=== PATIENT | male | born 1955 | race Caucasian/White ===

== ENCOUNTER 2021-05-02 15:53 | Inpatient (IN) | payer MEDICARE, OTHER ==
[2021-05-02 16:20] LABS: #Basophils 0.1 thou/uL (0.0-0.2); #Eosinphils 0.3 thou/uL (0.0-0.7); #Lymphocytes 1.5 thou/uL (1.20-3.40); #Monocytes 0.9 thou/uL (0.11-0.59); #Neutrophils 6.3 thou/uL (1.40-6.50); %Basophils 1.3 % (0.0-1.0); %Eosinophils 3.6 % (0.0-10.0); %Lymphocytes 16.7 % (21.0-51.0); %Monocytes 10.1 % (0.0-10.0); %Neutrophils 68.3 % (42.0-75.0); Hemoglobin 7.9 g/dL (14.0-18.0); Mean Corpuscular HGB CONC 34.1 g/dL (32.0-36.0); Mean Corpuscular Hemoglobin 34.3 pg (27.0-31.0); Platelet Count 134 thou/uL (130-400); RBC Distribution Width 13.7 % (11.5-14.5); Red Blood Cell (RBC) Count 2.31 mill/uL (4.70-6.10); White Blood Cell (WBC) Count 9.2 thou/uL (4.8-10.8)
[2021-05-02 16:33] LABS: INR-International Normal Ratio 1.2; PTT 30.4 sec (22.9-36.1); Prothrombin Time 15.9 sec (12.0-14.7)
[2021-05-02 16:42] LABS: ALT (SGPT) 17 U/L (8-55); AST (SGOT) 15 U/L (5-34); Albumin 3.9 g/dL (3.4-4.8); Alkaline Phosphatase 67 U/L (40-110); Anion Gap 13 mmol/L (10-20); BUN (Urea Nitrogen) 31 mg/dL (8.4-25.7); Bilirubin, Total 0.6 mg/dL (0.2-1.2); Calc. Creatinine Clearance 0 mL/min (70-130); Calcium 8.3 mg/dL (7.8-10.44); Carbon Dioxide 25 mmol/L (23-31); Chloride 106 mmol/L (98-107); Globulin 2.6 g/dL (2.4-3.5); Glucose 121 mg/dL (80-115); Potassium 3.7 mmol/L (3.5-5.1); Protein, Total 6.5 g/dL (5.8-8.1); Sodium 140 mmol/L (136-145)
[2021-05-02] MEDS ORDERED: Pantoprazole 40 MG VIAL ONE (16:57)
[2021-05-02] MEDS ORDERED: Ondansetron PF 4 MG/2 ML Vial IVP PRN (17:21)
[2021-05-02] MEDS ORDERED: Ondansetron ODT 4 MG TAB PO PRN (17:21)
[2021-05-02] MEDS ORDERED: Acetaminophen 650 MG Suppository PR PRN (17:21)
[2021-05-02 20:05] LABS: SARS-CoV-2 NAA Rapid Test Not Detected (NotDetected)
[2021-05-02 21:00] VITALS: BMI 32.9
[2021-05-02] MEDS: Pantoprazole 40 MG VIAL IVP SCH (21:16)
[2021-05-03 05:08] LABS: Anion Gap 11 mmol/L (10-20); BUN (Urea Nitrogen) 26 mg/dL (8.4-25.7); Calc. Creatinine Clearance 92 mL/min (70-130); Calcium 8.2 mg/dL (7.8-10.44); Carbon Dioxide 26 mmol/L (23-31); Chloride 109 mmol/L (98-107); Glucose 106 mg/dL (80-115); Potassium 3.7 mmol/L (3.5-5.1); Sodium 142 mmol/L (136-145)
[2021-05-03 06:05] LABS: #Basophils 0.1 thou/uL (0.0-0.2); #Eosinphils 0.3 thou/uL (0.0-0.7); #Lymphocytes 1.4 thou/uL (1.20-3.40); #Monocytes 0.7 thou/uL (0.11-0.59); #Neutrophils 4.5 thou/uL (1.40-6.50); %Basophils 1.5 % (0.0-1.0); %Eosinophils 3.8 % (0.0-10.0); %Lymphocytes 19.7 % (21.0-51.0); %Monocytes 9.8 % (0.0-10.0); %Neutrophils 65.3 % (42.0-75.0); MDiff Complete? YES; Mean Corpuscular HGB CONC 35.1 g/dL (32.0-36.0); Mean Corpuscular Hemoglobin 34.9 pg (27.0-31.0); Mean Corpuscular Volume 99.5 fL (78.0-98.0); Mean Platelet Volume 9.4 fL (7.4-10.4); Platelet Count 118 thou/uL (130-400); Platelet Morphology Comment Appears Decreased; Polychromasia SLIGHT = 2-3 cells (100X) (0-2/hpf); Red Blood Cell (RBC) Count 2.28 mill/uL (4.70-6.10); White Blood Cell (WBC) Count 6.9 thou/uL (4.8-10.8)
[2021-05-03 08:26] LABS: Hemoglobin 8.6 g/dL (14.0-18.0)
[2021-05-03] MEDS: Pantoprazole 40 MG VIAL IVP SCH ×2 (09:08→20:40)
[2021-05-03] MEDS ORDERED: PROPOFOL 200 MG/20 ML VIAL ONE (11:40)
[2021-05-03] MEDS ORDERED: Lidocaine 1% PF 5 ML VIAL ONE (11:40)
[2021-05-03] MEDS: Acetaminophen 325 MG TAB PO PRN ×2 (15:06→20:40)
[2021-05-04 04:31] LABS: Hemoglobin 7.9 g/dL (14.0-18.0)
[2021-05-04] MEDS: Pantoprazole 40 MG VIAL IVP SCH ×2 (10:03→23:02)
[2021-05-04] MEDS ORDERED: GoLYTELY 4,000 ml Bottle PO SCH ×2 (10:45→18:00)
[2021-05-04] MEDS: Acetaminophen 325 MG TAB PO PRN ×2 (12:12→22:59)
[2021-05-04] MEDS: Atorvastatin Calcium 40 MG TAB PO SCH (23:01)
[2021-05-04] MEDS: Allopurinol 300 MG TAB PO SCH (23:02)
[2021-05-05 08:03] LABS: #Eosinphils 0.2 thou/uL (0.0-0.7); #Lymphocytes 0.8 thou/uL (1.20-3.40); #Monocytes 0.8 thou/uL (0.11-0.59); #Neutrophils 7.1 thou/uL (1.40-6.50); %Basophils 0.5 % (0.0-1.0); %Eosinophils 1.9 % (0.0-10.0); %Lymphocytes 9.4 % (21.0-51.0); %Monocytes 8.8 % (0.0-10.0); %Neutrophils 79.4 % (42.0-75.0); Hemoglobin 8.8 g/dL (14.0-18.0); Mean Corpuscular HGB CONC 33.6 g/dL (32.0-36.0); Mean Corpuscular Hemoglobin 33.7 pg (27.0-31.0); Mean Platelet Volume 9.2 fL (7.4-10.4); Platelet Count 130 thou/uL (130-400); Red Blood Cell (RBC) Count 2.62 mill/uL (4.70-6.10); White Blood Cell (WBC) Count 8.9 thou/uL (4.8-10.8)
[2021-05-05] MEDS: Pantoprazole 40 MG VIAL IVP SCH ×2 (08:24→21:12)
[2021-05-05] MEDS ORDERED: ePHEDrine Sulfate 50 MG/10 ML VIAL ONE (11:34)
[2021-05-05] MEDS ORDERED: PROPOFOL 200 MG/20 ML VIAL ONE (11:34)
[2021-05-05] MEDS: Fish Oil 1,000 MG CAP PO SCH (12:23)
[2021-05-05] MEDS ORDERED: Iron, Sodium Ferric Gluconate 125 MG in Sodium Chloride 0.9% 100 ML IVPB SCH ×2 (18:00→20:00)
[2021-05-05] MEDS: Allopurinol 300 MG TAB PO SCH (21:12)
[2021-05-05] MEDS: Atorvastatin Calcium 40 MG TAB PO SCH (21:12)
[2021-05-06 04:52] LABS: #Eosinphils 0.2 thou/uL (0.0-0.7); #Lymphocytes 0.9 thou/uL (1.20-3.40); #Monocytes 0.7 thou/uL (0.11-0.59); #Neutrophils 7.1 thou/uL (1.40-6.50); %Basophils 0.4 % (0.0-1.0); %Eosinophils 2.1 % (0.0-10.0); %Lymphocytes 10.3 % (21.0-51.0); %Monocytes 7.8 % (0.0-10.0); %Neutrophils 79.4 % (42.0-75.0); Hemoglobin 8.1 g/dL (14.0-18.0); Mean Corpuscular Hemoglobin 34.8 pg (27.0-31.0); Mean Corpuscular Volume 99.4 fL (78.0-98.0); Mean Platelet Volume 9.4 fL (7.4-10.4); Platelet Count 120 thou/uL (130-400); RBC Distribution Width 14.1 % (11.5-14.5); Red Blood Cell (RBC) Count 2.31 mill/uL (4.70-6.10); White Blood Cell (WBC) Count 8.9 thou/uL (4.8-10.8)
[2021-05-06 05:24] LABS: Anion Gap 15 mmol/L (10-20); BUN (Urea Nitrogen) 35 mg/dL (8.4-25.7); Calc. Creatinine Clearance 41 mL/min (70-130); Calcium 8.2 mg/dL (7.8-10.44); Carbon Dioxide 22 mmol/L (23-31); Chloride 103 mmol/L (98-107); Glucose 118 mg/dL (80-115); Sodium 136 mmol/L (136-145)
[2021-05-06] MEDS: Sodium Chloride 0.9% 1,000 ML IV SCH ×2 (09:17→17:41)
[2021-05-06] MEDS: Iron, Sodium Ferric Gluconate 125 MG in Sodium Chloride 0.9% 100 ML IVPB SCH (09:17)
[2021-05-06] MEDS: Fish Oil 1,000 MG CAP PO SCH (09:21)
[2021-05-06] MEDS: Pantoprazole 40 MG VIAL IVP SCH (09:30)
[2021-05-06] MEDS ORDERED: Iron, Sodium Ferric Gluconate 250 MG in Sodium Chloride 0.9% 250 ML 250 ML IVPB SCH (15:30)
[2021-05-06] MEDS: Atorvastatin Calcium 40 MG TAB PO SCH (20:15)
[2021-05-06] MEDS: Allopurinol 300 MG TAB PO SCH (20:15)
[2021-05-07 05:58] LABS: ALT (SGPT) 299 U/L (8-55); AST (SGOT) 179 U/L (5-34); Alkaline Phosphatase 87 U/L (40-110); Anion Gap 10 mmol/L (10-20); BUN (Urea Nitrogen) 30 mg/dL (8.4-25.7); Bilirubin, Total 1.6 mg/dL (0.2-1.2); Calc. Creatinine Clearance 64 mL/min (70-130); Calcium 6.8 mg/dL (7.8-10.44); Carbon Dioxide 20 mmol/L (23-31); Chloride 111 mmol/L (98-107); Glucose 119 mg/dL (80-115); Potassium 3.6 mmol/L (3.5-5.1); Sodium 137 mmol/L (136-145)
[2021-05-07] MEDS: Sodium Chloride 0.9% 1,000 ML IV SCH (06:21)
[2021-05-07 06:50] LABS: #Eosinphils 0.4 thou/uL (0.0-0.7); #Lymphocytes 0.7 thou/uL (1.20-3.40); #Monocytes 0.8 thou/uL (0.11-0.59); #Neutrophils 6.6 thou/uL (1.40-6.50); %Basophils 0.6 % (0.0-1.0); %Eosinophils 4.7 % (0.0-10.0); %Lymphocytes 8.7 % (21.0-51.0); %Monocytes 8.8 % (0.0-10.0); %Neutrophils 77.2 % (42.0-75.0); Hemoglobin 7.1 g/dL (14.0-18.0); Mean Corpuscular HGB CONC 33.4 g/dL (32.0-36.0); Mean Corpuscular Hemoglobin 33.8 pg (27.0-31.0); Mean Platelet Volume 9.4 fL (7.4-10.4); Platelet Count 117 thou/uL (130-400); RBC Distribution Width 13.9 % (11.5-14.5); White Blood Cell (WBC) Count 8.5 thou/uL (4.8-10.8)
[2021-05-07] MEDS: Iron, Sodium Ferric Gluconate 125 MG in Sodium Chloride 0.9% 100 ML IVPB SCH (08:21)
[2021-05-07] MEDS: Fish Oil 1,000 MG CAP PO SCH (08:21)
[2021-05-07] MEDS: Acetaminophen 325 MG TAB PO PRN ×2 (08:31→15:22)
[2021-05-07 11:58] LABS: Hemoglobin 8.6 g/dL (14.0-18.0)
[2021-05-07 11:59] LABS: #Basophils 0.1 thou/uL (0.0-0.2); #Eosinphils 0.5 thou/uL (0.0-0.7); #Lymphocytes 0.8 thou/uL (1.20-3.40); #Monocytes 0.9 thou/uL (0.11-0.59); #Neutrophils 7.3 thou/uL (1.40-6.50); %Basophils 0.6 % (0.0-1.0); %Eosinophils 4.9 % (0.0-10.0); %Lymphocytes 8.4 % (21.0-51.0); %Monocytes 9.4 % (0.0-10.0); %Neutrophils 76.7 % (42.0-75.0); Hemoglobin 8.5 g/dL (14.0-18.0); Mean Corpuscular HGB CONC 33.4 g/dL (32.0-36.0); Mean Corpuscular Hemoglobin 33.6 pg (27.0-31.0); Mean Platelet Volume 9.3 fL (7.4-10.4); Platelet Count 134 thou/uL (130-400); Red Blood Cell (RBC) Count 2.53 mill/uL (4.70-6.10); White Blood Cell (WBC) Count 9.5 thou/uL (4.8-10.8)
[2021-05-07] MEDS ORDERED: Bisacodyl 5 MG TAB PO PRN (12:34)
[2021-05-07] MEDS ORDERED: Docusate 100 MG CAP PO PRN (12:34)
[2021-05-07 12:39] LABS: Anion Gap 14 mmol/L (10-20); BUN (Urea Nitrogen) 32 mg/dL (8.4-25.7); Calc. Creatinine Clearance 63 mL/min (70-130); Carbon Dioxide 20 mmol/L (23-31); Chloride 103 mmol/L (98-107); Glucose 155 mg/dL (80-115); Potassium 3.9 mmol/L (3.5-5.1); Sodium 133 mmol/L (136-145)
[2021-05-07] MEDS ORDERED: Torsemide 20 MG TAB PO SCH (13:00)
[2021-05-07 13:09] LABS: ALT (SGPT) 341 U/L (8-55); AST (SGOT) 175 U/L (5-34); Albumin 3.7 g/dL (3.4-4.8); Alkaline Phosphatase 106 U/L (40-110); Bilirubin, Direct 0.9 mg/dL (0.1-0.3); Bilirubin, Total 1.8 mg/dL (0.2-1.2); Protein, Total 6.1 g/dL (5.8-8.1)
[2021-05-07] MEDS ORDERED: Furosemide 20 MG/2 ML VIAL SLOW IVP SCH (19:00)
[2021-05-07] MEDS: Allopurinol 300 MG TAB PO SCH (20:47)
[2021-05-07] MEDS: Sacubitril 49 MG/Valsartan 51 MG TABLET PO SCH (20:52)
[2021-05-07] MEDS: Carvedilol 6.25 MG TAB PO SCH (20:52)
[2021-05-07] MEDS: Atorvastatin Calcium 40 MG TAB PO SCH (20:54)
[2021-05-08 05:53] LABS: #Eosinphils 0.4 thou/uL (0.0-0.7); #Lymphocytes 0.8 thou/uL (1.20-3.40); #Neutrophils 5.7 thou/uL (1.40-6.50); %Basophils 0.5 % (0.0-1.0); %Eosinophils 4.8 % (0.0-10.0); %Lymphocytes 10.2 % (21.0-51.0); %Monocytes 12.1 % (0.0-10.0); %Neutrophils 72.4 % (42.0-75.0); Hemoglobin 7.7 g/dL (14.0-18.0); Mean Corpuscular HGB CONC 33.2 g/dL (32.0-36.0); Mean Corpuscular Hemoglobin 33.3 pg (27.0-31.0); Mean Platelet Volume 9.1 fL (7.4-10.4); Platelet Count 150 thou/uL (130-400); RBC Distribution Width 13.9 % (11.5-14.5); White Blood Cell (WBC) Count 7.9 thou/uL (4.8-10.8)
[2021-05-08 05:54] LABS: Anion Gap 9 mmol/L (10-20); BUN (Urea Nitrogen) 32 mg/dL (8.4-25.7); Calc. Creatinine Clearance 69 mL/min (70-130); Calcium 7.7 mg/dL (7.8-10.44); Carbon Dioxide 28 mmol/L (23-31); Chloride 104 mmol/L (98-107); Glucose 113 mg/dL (80-115); Potassium 3.6 mmol/L (3.5-5.1); Sodium 137 mmol/L (136-145)
[2021-05-08 07:28] LABS: ALT (SGPT) 258 U/L (8-55); AST (SGOT) 89 U/L (5-34); Albumin 3.4 g/dL (3.4-4.8); Alkaline Phosphatase 120 U/L (40-110); Bilirubin, Direct 0.8 mg/dL (0.1-0.3); Bilirubin, Total 1.6 mg/dL (0.2-1.2); Protein, Total 5.5 g/dL (5.8-8.1)
[2021-05-08] MEDS: Carvedilol 6.25 MG TAB PO SCH ×2 (08:37→20:38)
[2021-05-08] MEDS: Torsemide 20 MG TAB PO SCH (08:38)
[2021-05-08] MEDS: Sacubitril 49 MG/Valsartan 51 MG TABLET PO SCH ×2 (08:39→20:37)
[2021-05-08] MEDS: Fish Oil 1,000 MG CAP PO SCH (08:40)
[2021-05-08] MEDS: Iron, Sodium Ferric Gluconate 125 MG in Sodium Chloride 0.9% 100 ML IVPB SCH (08:41)
[2021-05-08] MEDS ORDERED: Furosemide 20 MG/2 ML VIAL SLOW IVP SCH ×2 (13:00→19:00)
[2021-05-08] MEDS: Acetaminophen 325 MG TAB PO PRN (18:16)
[2021-05-08] MEDS: Apixaban 5 MG TAB PO SCH (20:37)
[2021-05-09] MEDS: Acetaminophen 325 MG TAB PO PRN (00:07)
[2021-05-09] MEDS: Allopurinol 300 MG TAB PO SCH (00:17)
[2021-05-09 06:05] LABS: #Eosinphils 0.1 thou/uL (0.0-0.7); #Lymphocytes 1.1 thou/uL (1.20-3.40); #Monocytes 0.7 thou/uL (0.11-0.59); #Neutrophils 3.6 thou/uL (1.40-6.50); %Basophils 0.7 % (0.0-1.0); %Eosinophils 2.2 % (0.0-10.0); %Lymphocytes 19.2 % (21.0-51.0); %Monocytes 12.7 % (0.0-10.0); %Neutrophils 65.2 % (42.0-75.0); Mean Corpuscular HGB CONC 34.4 g/dL (32.0-36.0); Mean Corpuscular Hemoglobin 34.3 pg (27.0-31.0); Mean Corpuscular Volume 99.7 fL (78.0-98.0); Mean Platelet Volume 8.9 fL (7.4-10.4); Platelet Count 157 thou/uL (130-400); RBC Distribution Width 14.4 % (11.5-14.5); Red Blood Cell (RBC) Count 2.32 mill/uL (4.70-6.10); White Blood Cell (WBC) Count 5.5 thou/uL (4.8-10.8)
[2021-05-09 06:17] LABS: ALT (SGPT) 200 U/L (8-55); AST (SGOT) 51 U/L (5-34); Albumin 3.3 g/dL (3.4-4.8); Alkaline Phosphatase 125 U/L (40-110); Anion Gap 10 mmol/L (10-20); BUN (Urea Nitrogen) 29 mg/dL (8.4-25.7); Bilirubin, Total 1.4 mg/dL (0.2-1.2); Calc. Creatinine Clearance 80 mL/min (70-130); Calcium 8.1 mg/dL (7.8-10.44); Carbon Dioxide 28 mmol/L (23-31); Chloride 105 mmol/L (98-107); Globulin 2.4 g/dL (2.4-3.5); Glucose 103 mg/dL (80-115); Potassium 3.3 mmol/L (3.5-5.1); Protein, Total 5.7 g/dL (5.8-8.1); Sodium 140 mmol/L (136-145)
[2021-05-09 07:44] VITALS: BP 103/62; TEMP 98.6
[2021-05-09] MEDS ORDERED: Potassium Chloride 20 MEQ TAB PO SCH (08:00)
[2021-05-09] MEDS: Sacubitril 49 MG/Valsartan 51 MG TABLET PO SCH (09:22)
[2021-05-09] MEDS: Torsemide 20 MG TAB PO SCH (09:24)
[2021-05-09] MEDS: Apixaban 5 MG TAB PO SCH (09:24)
[2021-05-09] MEDS: Carvedilol 6.25 MG TAB PO SCH (09:24)
[2021-05-09] MEDS: Fish Oil 1,000 MG CAP PO SCH (09:25)
[2021-05-09] MEDS: Iron, Sodium Ferric Gluconate 125 MG in Sodium Chloride 0.9% 100 ML IVPB SCH (09:45)
== END 2021-05-09 12:08 | disposition home or self-care (01) | DRG 378 ==
LOC: ERS 15:53 → 2NO 17:10 → SURG A 05-06 16:31
PROVIDERS: ADMIT Internal Medicine; ATTEND Internal Medicine
PROC: 30233N1 Transfusion of Nonautologous Red Blood Cells into Peripheral Vein, Percutaneous Approach (ICD-10-PCS; principal; 2021-05-02)
PROC: 0DB78ZX Excision of Stomach, Pylorus, Via Natural or Artificial Opening Endoscopic, Diagnostic (ICD-10-PCS; 2021-05-03)
PROC: 0DBK8ZZ Excision of Ascending Colon, Via Natural or Artificial Opening Endoscopic (ICD-10-PCS; 2021-05-05)
DX: K29.01 Acute gastritis with bleeding (principal); D62 Acute posthemorrhagic anemia; N17.9 Acute kidney failure, unspecified; I50.22 Chronic systolic (congestive) heart failure; Z20.822 Contact with and (suspected) exposure to COVID-19; I25.10 Atherosclerotic heart disease of native coronary artery without angina pectoris; I48.91 Unspecified atrial fibrillation; M54.9 Dorsalgia, unspecified; G89.29 Other chronic pain; M19.90 Unspecified osteoarthritis, unspecified site; M10.9 Gout, unspecified; E87.70 Fluid overload, unspecified; K76.1 Chronic passive congestion of liver; I11.0 Hypertensive heart disease with heart failure; Z88.5 Allergy status to narcotic agent; Z79.82 Long term (current) use of aspirin; Z79.899 Other long term (current) drug therapy; Z79.01 Long term (current) use of anticoagulants; Z95.1 Presence of aortocoronary bypass graft; Z95.5 Presence of coronary angioplasty implant and graft
CPT/HCPCS: 36415; 36430; 80048; 80053; 80076; 82274; 83880; 85014; 85018; 85025; 85610; 85730; 86850; 86900; 86901; 88305; 88312; 93005; 96374; C9113; J1940; J2405; J2704; J2916; J3490; P9016; U0002; U0005

== ENCOUNTER 2021-11-14 16:41 | Emergency (ER) | payer MEDICARE, OTHER | END 2021-11-14 17:56 | disposition home or self-care (01) | LOC: ERS 16:41 | DX: R04.2 Hemoptysis (principal); I50.9 Heart failure, unspecified; E78.00 Pure hypercholesterolemia, unspecified; M1A.9XX1 Chronic gout, unspecified, with tophus (tophi); E78.5 Hyperlipidemia, unspecified; Z79.82 Long term (current) use of aspirin; Z79.01 Long term (current) use of anticoagulants; Z79.899 Other long term (current) drug therapy | CPT/HCPCS: 71046 ==

== ENCOUNTER 2022-05-05 17:30 | Outpatient (CLI) | payer MEDICARE, OTHER | END 2022-05-05 17:31 | disposition home or self-care (01) | LOC: SLEEPLAB 17:30 | PROVIDERS: ATTEND Internal Medicine Cardiovascular Disease | DX: G47.33 Obstructive sleep apnea (adult) (pediatric) (principal) | CPT/HCPCS: 95800 ==

== ENCOUNTER 2022-06-20 19:30 | Outpatient (CLI) | payer MEDICARE, OTHER | END 2022-06-20 19:31 | disposition home or self-care (01) | LOC: SLEEPLAB 19:30 | PROVIDERS: ATTEND Internal Medicine Cardiovascular Disease | DX: G47.33 Obstructive sleep apnea (adult) (pediatric) (principal) | CPT/HCPCS: 95811 ==

== ENCOUNTER 2023-12-23 06:10 | Inpatient (IN) | payer MEDICARE, OTHER ==
[2023-12-21 14:56] VITALS: BMI 31.8
[2023-12-23] MEDS ORDERED: CEFAZOLIN 2 GM VIAL ONE (06:44)
[2023-12-23] MEDS ORDERED: Protamine Sulfate 50 MG/5 ML VIAL ONE (06:44)
[2023-12-23] MEDS ORDERED: Heparin 10,000 UNITS/ 10 ML VIAL ONE (06:44)
[2023-12-23] MEDS ORDERED: Rocuronium Bromide 10 MG/ML (10ML VIAL) ONE (07:04)
[2023-12-23] MEDS ORDERED: fentaNYL 50 mcg/mL 1 mL Vial ONE ×3 (07:04→12:10)
[2023-12-23] MEDS ORDERED: PROPOFOL 20 ML ONE (07:05)
[2023-12-23] MEDS ORDERED: Lidocaine 1% PF 5 ML VIAL ONE (07:05)
[2023-12-23] MEDS ORDERED: Phenylephrine 10 MG/ML VIAL ONE (07:05)
[2023-12-23] MEDS ORDERED: SUGAMMADEX SODIUM 200 MG/2 ML VIAL ONE (09:30)
== END 2023-12-23 14:53 | disposition home or self-care (01) | DRG 274 ==
LOC: SURG A 06:10
PROVIDERS: ADMIT Internal Medicine Cardiovascular Disease; ATTEND Internal Medicine Cardiovascular Disease
PROC: 02L73DK Occlusion of Left Atrial Appendage with Intraluminal Device, Percutaneous Approach (ICD-10-PCS; principal; 2023-12-23)
PROC: B24BZZ4 Ultrasonography of Heart with Aorta, Transesophageal (ICD-10-PCS; 2023-12-23)
PROC: 3E033XZ Introduction of Vasopressor into Peripheral Vein, Percutaneous Approach (ICD-10-PCS; 2023-12-23)
DX: I48.19 Other persistent atrial fibrillation (principal); Z00.6 Encounter for examination for normal comparison and control in clinical research program; I50.22 Chronic systolic (congestive) heart failure; I48.0 Paroxysmal atrial fibrillation; Z95.1 Presence of aortocoronary bypass graft; I25.2 Old myocardial infarction; Z88.5 Allergy status to narcotic agent; Z88.8 Allergy status to other drugs, medicaments and biological substances; Z79.899 Other long term (current) drug therapy; Z79.82 Long term (current) use of aspirin; I25.5 Ischemic cardiomyopathy; I25.10 Atherosclerotic heart disease of native coronary artery without angina pectoris; D50.0 Iron deficiency anemia secondary to blood loss (chronic); I44.2 Atrioventricular block, complete; Z95.0 Presence of cardiac pacemaker; Z88.1 Allergy status to other antibiotic agents
CPT/HCPCS: 33340; 85347; 86850; 86900; 86901; 93005; 93010; 93306; 93312; C1759; C1760; C1894; J1644; J2370; J2704; J2720; J3010